=== PATIENT | male | born 1990 | race Caucasian/White ===

== ENCOUNTER 2017-09-08 11:53 | Emergency (ER) | payer OTHER ==
[~2017-09-08] VITALS: Ht 188 cm; Wt 107.9 kg
[2017-09-08 12:34] LABS: HEMATOCRIT 47.3 % (38.0-50.0); MCHC 34.2 G/DL (30.0-36.0); MCV 90.6 FL (86-99); PLATELET COUNT 137 K/uL (156-360); RBC DIS.WIDTH-CV 11.9 % (11.8-14.6); RBC DIS.WIDTH-SD 39.4 % (39-53); RED BLOOD COUNT 5.22 M/uL (4.00-5.50); WHITE BLOOD COUNT 5.9 K/uL (4.1-10.2)
[2017-09-08 12:45] LABS: CHLORIDE 106 mEq/L (99-109); POTASSIUM 3.7 mEq/L (3.7-5.4); SODIUM 137 mEq/L (136-147)
[2017-09-08 12:46] LABS: GLUCOSE 106 mg/dL (70-99)
[2017-09-08 12:48] LABS: ANION GAP 7 MEQ/L (2-14)
[2017-09-08 12:51] LABS: UREA NITROGEN (BUN) 9 mg/dL (9-23)
[2017-09-08 12:55] LABS: TROP-I INTERPRETATION NEGATIVE; TROPONIN-I < 0.01 ng/mL (0.0-0.30)
[2017-09-08 12:59] LABS: GFR ESTIMATE (CALCULATED) > 59 mL/min/
[2017-09-08] MEDS ORDERED: NAPROSYN500 MG PO (16:57)
[2017-09-08] MEDS ORDERED: VALIUM5 MG PO (16:57)
[2017-09-08 17:11] VITALS: BP 119/77
== END 2017-09-08 17:12 | disposition home or self-care (01) ==
LOC: EME 11:53
PROVIDERS: Physician Assistant
DX: S29.011A Strain of muscle and tendon of front wall of thorax, initial encounter (principal); F17.200 Nicotine dependence, unspecified, uncomplicated
CPT/HCPCS: 71020; 71275; 80048; 84484; 85027; 85379; 93005; 99281; 99284; J7030